=== PATIENT | female | born 1970 | race Caucasian/White ===

== ENCOUNTER → 2016-11-12 | Outpatient (CLI) | payer BC ==
[~2016-11-12] MED LIST: AMIT25TA9 PO; CYCL-375 PO; FAMO20TA8 PO; LAMO25TA3 PO; LEVO75TA10 PO; LINA145C PO; NAPR220T61 PO; TRAZ-170 PO
== END ==
LOC: LAB 10:48
PROVIDERS: ATTEND Family Medicine
DX: E03.9 Hypothyroidism, unspecified (principal)
CPT/HCPCS: 84439; 84443

== ENCOUNTER 2016-12-12 04:47 | Emergency (ER) | payer BC ==
[~2016-12-12] VITALS: Ht 166.4 cm; Wt 64.5 kg
--- OUTSIDE RECORDS SUMMARY | 2016-12-12 04:51 | XMS REPORT | Continuity of Care Document ---
Author Author [facility] Organization [facility] Address Unknown Phone Unavailable Support Name Relationship Address Phone BERNABE HOLDER MD Caregiver [address] [address] Unavailable CONNIE QUEZADA MD Caregiver [address] [place] [address] Unavailable DIXON DICKERSON Next Of Kin Unknown [phone] Insurance Providers Guarantor Mimi Turner Address [address] [place] [address] Email [email or web address] Policy Number [id number] Subscriber's Name YueEribertoa Relationship 18 Self Group Number [id number] Chief Complaint and Reason for Visit Chief Complaint Headache Reason for Visit headache consistent with migraine Problems Active Problems Medical Problem Onset Date Status Cephalgia consistent with migraine Unknown Acute Cephalgia consistent with migraine Unknown Acute Headache Unknown Acute Left flank pain Unknown Acute headache consistent with migraine Unknown Acute Medications Current Home Medications Medication Dose Units Route Directions Days Qty Instructions Start Date Amitriptyline Hcl 25 Mg Tablet 25 Mg Oral Bedtime 06/26/16 Cyclobenzaprine Hcl 10 Mg Tablet 10 Mg Oral Every 6 Hours as needed for Muscle Spasm 06/26/16 Famotidine 20 Mg Tablet 20 Mg Oral Twice A Day 06/26/16 Lamotrigine (Lamictal) 25 Mg Tablet 50 Mg Oral Bedtime 05/23/12 Levothyroxine Sodium 75 Mcg Tablet 75 Mcg Oral Before Breakfast 06/26/16 Linaclotide (Linzess) 145 Mcg Capsule 145 Mcg Oral Daily 06/26/16 Naproxen Sodium (Aleve) 220 Mg Tablet 440 Mg Oral Twice Daily With Meals as needed for Pain 06/26/16 Trazodone Hcl 50 Mg Tablet 75 Mg Oral Bedtime 06/26/16 Past Home Medications Medication Directions Ordered Status Estrogens,Conjugated (Premarin) 0.625 Mg Tablet, 1 Tab Oral Daily 01/14/09 Discontinued Lorazepam (Ativan) 1 Mg Tablet, 1 Tab Oral As Needed 01/14/09 Discontinued Trazodone Hcl (Desyrel) 100 Mg Tablet, 0.5 Tab Oral Bedtime 07/22/08 Discontinued Venlafaxine Hcl (Effexor Xr) 150 Mg Cap.sr.24h, 150 Oral Daily 07/22/08 Discontinued Social History Social History Problem Response Recorded Date/Time Onset Date Status Chewing Tobacco Status No 02/15/2014 1:55am Not Applicable Not Applicable Hx Substance Use No 06/26/2016 9:53am Not Applicable Not Applicable Hx Alcohol Use Y OCCASIONALLY 06/26/2016 9:53am Not Applicable Not Applicable Tobacco Usage none 05/04/2015 4:18pm Not Applicable Not Applicable Query Response Start Date Stop Date Smoking Status Never smoker Hospital Discharge Instructions No hospital discharge instructions. Plan of Care Discharge Date 06/26/16 12:20pm Disposition 01 DISCHARGED HOME, SELF-CARE Condition at Discharge Improved Instructions/Education Provided Migraine -- Adult Prescriptions See Medication Section Referrals BERNABE HOLDER MD Address: [address] [place] [address] [place] [address] Care Plan and Goals Physician Care Plan Problem: Migraine Goal: Follow up with primary care provider Instructions: Take medications and follow care plan as discussed/written Functional Status No functional status results. Allergies, Adverse Reactions, Alerts Allergen Type Severity Reaction Status Last Updated No Known Drug Allergies Allergy Unknown Active 08/11/15 Immunizations Query Response on File Recorded Date/Time Hx Influenza Vaccination Y 05/201405/05/15 1:26pm Hx Influenza Vaccination Y 05/201405/05/15 1:26pm Vital Signs Acute Vital Signs Vital Response Date/Time Temperature (Fahrenheit) 97.5 deg F (96.8 - 99.1) 06/26/2016 12:20pm Temperature (Calculated Celsius) 36.93046 degrees C (36.0 - 37.3) 06/26/2016 12:20pm Pulse Rate (adult) 106 bpm (60 - 100) 06/26/2016 12:20pm Respiratory Rate 16 breaths/min (10 - 20) 06/26/2016 12:20pm O2 Sat by Pulse Oximetry 100 % (90 - 100) 06/26/2016 12:20pm Blood Pressure 112/69 mm Hg 06/26/2016 12:20pm Height (Feet) 5 feet 06/26/2016 9:42am Height (Inches) 5.00 inches 06/26/2016 9:42am Weight (Kilograms) 65.800 kg 06/26/2016 9:42am Body Mass Index (BMI) 24.0 06/26/2016 9:42am Results Laboratory Results Test Name Result Units Flags Reference Collection Date/Time Result Date/ Time Comments White Blood Count 9.3 T/MM3 4.5-11.0 05/01/2016 1:07pm 05/01/2016 1: 21pm Red Blood Count 4.53 M/MM3 4.00-5.20 05/01/2016 1:07pm 05/01/2016 1: 21pm Hemoglobin 12.0 GM/DL 12-16 05/01/2016 1:07pm 05/01/2016 1:21pm Hematocrit 37.8 % 36-46 05/01/2016 1:05/01/2016 1:21pm Mean Corpuscular Volume 83.4 UM3 80-100 05/01/2016 1:07pm 05/01/2016 1: 21pm Mean Corpuscular Hemoglobin 26.5 UUG 26-34 05/01/2016 1:072015 1:21pm Mean Corpuscular Hemoglobin Concent 31.7 GM/DL 31-37 05/01/2016 1:07pm 05/01/2016 1:21pm RDW Standard Deviation 42.0 FL 36.9-50.2 05/01/2016 1:07pm 05/01/2016 1 :21pm Platelet Count 349 T/MM3 130-400 05/01/2016 1:05/01/2016 1:21pm Mean Platelet Volume 9.6 UM3 9.4-12.4 05/01/2016 1:0705/01/2016 1: 21pm Neutrophils (%) (Auto) 47.1 % 33-66 05/01/2016 1:07pm 05/01/2016 1: 21pm Lymphocytes (%) (Auto) 43.3 % 23-45 05/01/2016 1:05/01/2016 1: 21pm Monocytes (%) (Auto) 6.6 % 0-9.0 05/01/2016 1:07pm 05/01/2016 1:21pm Eosinophils (%) (Auto) 2.2 % 0-4 05/01/2016 1:0705/01/2016 1:21pm Basophils (%) (Auto) 0.5 % 0-2 05/01/2016 1:07pm 05/01/2016 1:21pm Immature Granulocyte % (Auto) 0.3 % 0.0-0.5 05/01/2016 1:07pm 2015 1:21pm Absolute Neutrophils (auto) 4.4 T/MM3 1.8-7.7 05/01/2016 1:07pm 2015 1:21pm Absolute Lymphocytes (auto) 4.0 T/MM3 1-4.8 05/01/2016 1:07pm 2015 1:21pm Absolute Monocytes (auto) 0.6 T/MM3 0-0.8 05/01/2016 1:07pm 05/01/2016 1:21pm Absolute Eosinophils (auto) 0.2 T/MM3 0-0.5 05/01/2016 1:07pm 2015 1:21pm Absolute Basophils (auto) 0.1 T/MM3 0-0.2 05/01/2016 1:0705/01/2016 1:21pm Absolute Immature Granulocyte (auto 0.03 T/MM3 0.00-0.03 05/01/2016 1: 07pm 05/01/2016 1:21pm Icterus Index < 2 0-7 05/01/2016 1:pm 05/01/2016 2:00pm Chemistry Specimen Hemolysis < 15 0-25 05/01/2016 1:07pm 05/01/2016 2 :00pm 0-25: Specimen Exhibited No Hemolysis. Turbidity < 20 0-20 05/01/2016 1:05/01/2016 2:00pm Sodium Level 145 MEQ/L H 134-144 05/01/2016 1:05/01/2016 2:00pm Potassium Level 3.8 MEQ/L 3.6-5 05/01/2016 1:0705/01/2016 2:00pm Chloride Level 104 MEQ/L 98-107 05/01/2016 1:07pm 05/01/2016 2:00pm Carbon Dioxide Level 29 MEQ/L 22-30 05/01/2016 1:07pm 05/01/2016 2: 00pm Anion Gap 12 MEQ/L 5-15 05/01/2016 1:07pm 05/01/2016 2:00pm Blood Urea Nitrogen 13.0 MG/DL 7-17 05/01/2016 1:07pm 05/01/2016 2: 00pm Creatinine 0.8 MG/DL 0.7-1.2 05/01/2016 1:07pm 05/01/2016 2:00pm BUN/Creatinine Ratio 16 RATIO 6-26 05/01/2016 1:07pm 05/01/2016 2:00pm Glomerular Filtration Rate Calc 78 05/01/2016 1:07pm 05/01/2016 2: 00pm Glucose Level 76 MG/DL 65-110 05/01/2016 1:07pm 05/01/2016 2:00pm Calculated Osmolality 278 MOSM/KG 261-280 05/01/2016 1:pm 05/01/2016 2:00pm Calcium Level 9.4 MG/DL 8.4-10.2 05/01/2016 1:07pm 05/01/2016 2:00pm Total Bilirubin 0.20 MG/DL 0.20-1.30 05/01/2016 1:pm 05/01/2016 2: 00pm Alkaline Phosphatase 90 U/L 38-126 05/01/2016 1:07pm 05/01/2016 2:00pm Total Protein 7.3 G/DL 6.3-8.2 05/01/2016 1:07pm 05/01/2016 2:00pm Albumin 4.4 G/DL 3.5-5.0 05/01/2016 1:07pm 05/01/2016 2:00pm Globulin 2.9 G/DL 2.4-3.6 05/01/2016 1:pm 05/01/2016 2:00pm Albumin/Globulin Ratio 1.5 RATIO 1.1-2.2 05/01/2016 1:07pm 05/01/2016 2 :00pm Aspartate Amino Transf (AST/SGOT) 22 U/L 14-36 05/01/2016 1:07pm 2015 2:00pm Alanine Aminotransferase (ALT/SGPT) 15 U/L 9-52 05/01/2016 1:07pm 05/01 2:00pm Thyroid Stimulating Hormone (TSH) 6.68 MIU/L H 0.47-4.68 05/01/2016 1: 07pm 05/01/2016 2:31pm Procedures Procedure Status Date Provider(s) ROUTINE VENIPUNCTURE Completed 05/01/16 X-RAY EXAM OF FOOT Completed 05/01/16 COMPREHEN METABOLIC PANEL Completed 05/01/16 ASSAY THYROID STIM HORMONE Completed 05/01/16 COMPLETE CBC W/AUTO DIFF WBC Completed 05/01/16 TTE W/DOPPLER COMPLETE Completed 05/26/16 Encounters Encounter Location Arrival/Admit Date Discharge/Depart Date Attending Provider Departed Emergency Room [facility] 06/26/16 9:40am 06/26/16 12: 20pm CONNIE QUEZADA MD Registered Clinic [facility] 05/26/16 1:32pm KAZ MORENO MD Registered [facility] 05/01/16 5:32am BERNABE HOLDER MD Recent Diagnosis
--- OUTSIDE RECORDS SUMMARY | 2016-12-12 04:51 | XMS REPORT | Continuity of Care Document ---
Author Author [facility] Organization [facility] Address Unknown Phone Unavailable Support Name Relationship Address Phone MARIA LUZRASHI PERRY DO Caregiver [facility] [address] [place], [place] [id number] FADUMO DOLL MD Caregiver [address] [place] [address] DIXON DICKERSON Next Of Kin Unknown [phone] Insurance Providers Payer Name Policy Number Subscriber Name Relationship Self Pay Mimi Godinez 18 Self Problems Medical Problems Problem Onset Date Status Headache Unknown Active headache consistent with migraine Unknown Active Cephalgia consistent with migraine Unknown Active Cephalgia consistent with migraine Unknown Active Medications Medication Dose Route Sig Days/Qty Instructions Order Date Discontinued Date Status Trazodone Hcl 0.5 Tab PO BEDTIME 07/22/08 Active Venlafaxine Hcl 150 PO DAILY 07/22/08 09/03/10 Discontinued Lorazepam 1 Tab PO NEEDED 01/14/09 09/03/10 Discontinued Estrogens,Conjugated 1 Tab PO DAILY 01/14/09 09/03/10 Discontinued Lamotrigine 0 PO 05/23/12 Active Cyclobenzaprine Hcl 5 Mg NEEDED PRN 09/21/13 Active Social History Social History Problem Response Recorded Date/Time Smoking Status Never smoker 02/15/2014 1:55am Chewing Tobacco Status No 02/15/2014 1:55am Hx Substance Use No 02/15/2014 1:55am Hx Alcohol Use Y OCCASSIONALLY 02/15/2014 1:55am Query Response Start Date Stop Date Smoking Status Never smoker Hospital Discharge Instructions No hospital discharge instructions. Plan of Care No plan of care. Functional Status Query Response Date Recorded Physical Hygiene Self February 15, 2014 1:55am Disabilities None February 15, 2014 1:55am Devices Used None February 15, 2014 1:55am Dressing Self February 15, 2014 1:55am Ambulation Self February 15, 2014 1:55am Diet Self February 15, 2014 1:55am Mental Status Alert Oriented February 15, 2014 1:55am Disabilities None February 15, 2014 1:55am Devices Used None February 15, 2014 1:55am Physical Hygiene Self February 15, 2014 1:55am Dressing Self February 15, 2014 1:55am Ambulation Self February 15, 2014 1:55am Diet Self February 15, 2014 1:55am Allergies, Adverse Reactions, Alerts Allergen Type Severity Reaction Status Last Updated No Known Drug Allergies Allergy Unknown Active 02/15/14 Immunizations Name Given Type Hx Influenza Vaccination Y 05/2013 Historical Hx Influenza Vaccination Y 05/2013 Historical Vital Signs Acute Vital Signs Vital Response Date/Time Temperature (Fahrenheit) 97.2 deg F (96.8 - 99.1) Temperature (Calculated Celsius) 36.62646 degrees C (36.0 - 37.3) Pulse Rate (adult) 84 bpm (60 - 100) Respiratory Rate 14 breaths/min (10 - 20) O2 Sat by Pulse Oximetry 98 % (90 - 100) Blood Pressure 106/63 mm Hg Height 5 ft 5 in Weight 125 lb Body Mass Index 20.0 kg/m^2 Results Test Source Date Result Interp. Ref. Range Comments Acetaminophen Level August 16, 2012 1:27pm < 10 UG/ML L 10-30 TOXIC < 4 HR POST INGESTION: >150 MG/L;TOXIC <12 HR POST INGESTION: >50 MG/L Alanine Aminotransferase (ALT/SGPT) November 24, 2012 9:17pm 33 U/L N 9-52 Albumin August 16, 2012 1:27pm 4.2 G/DL N 3.5-5.0 Albumin/Globulin Ratio August 16, 2012 1:27pm 1.4 RATIO N 1.1-2.2 Alcohol, Quantitative August 16, 2012 1:27pm <10 MG/DL - Alkaline Phosphatase August 16, 2012 1:27pm 96 U/L N 38-126 Amylase Level September 03, 2010 7:09pm 38 U/L N 30-110 Anion Gap August 16, 2012 1:27pm 13 MEQ/L N 5-15 Aspartate Amino Transf (AST/SGOT) August 16, 2012 1:27pm 38 U/L H 14- 36 BUN/Creatinine Ratio August 16, 2012 1:27pm 15 RATIO N 6-26 Band Neutrophils # August 16, 2012 1:27pm 0.6 T/MM3 - Band Neutrophils % August 16, 2012 1:27pm 6.0 % N 0-6 Basophils # (Auto) March 08, 2012 5:40am 0.1 T/MM3 N 0-0.2 Basophils (%) (Auto) March 08, 2012 5:40am 0.5 % N 0-2 Blood Urea Nitrogen August 16, 2012 1:27pm 12.0 MG/DL N 7-17 Calcium Level August 16, 2012 1:27pm 9.2 MG/DL N 8.4-10.2 Calculated Osmolality August 16, 2012 1:27pm 274 MOSM/KG N 261-280 Carbon Dioxide Level August 16, 2012 1:27pm 26 MEQ/L N 22-30 Chloride Level August 16, 2012 1:27pm 104 MEQ/L N 98-107 Conjugated Bilirubin August 16, 2012 1:27pm 0.00 MG/DL N 0.00-0.30 Creatinine August 16, 2012 1:27pm 0.8 MG/DL N 0.7-1.2 Crenated Cell August 16, 2012 1:27pm 1+ - Differential Total Cells Counted September 03, 2010 7:09pm 100 % - Eosinophils # (Auto) March 08, 2012 5:40am 0.4 T/MM3 N 0-0.5 Eosinophils # (Manual) August 16, 2012 1:27pm 0.1 T/MM3 N 0-0.5 Eosinophils % (Manual) August 16, 2012 1:27pm 1.0 % N 0-4 Eosinophils (%) (Auto) March 08, 2012 5:40am 3.6 % N 0-4 Globulin August 16, 2012 1:27pm 2.9 G/DL N 2.4-3.6 Glucose Level August 16, 2012 1:27pm 82 MG/DL N 65-110 Group A Streptococcus Screen September 03, 2010 9:28pm Positive - Has specimen been collected/obtained? Y Hematocrit August 16, 2012 1:27pm 39.3 % N 36-46 Hemoglobin August 16, 2012 1:27pm 13.1 GM/DL N 12-16 Hepatitis B Surface Ab Concentrat November 24, 2012 9:17pm Positive - Hepatitis B Surface Antibody September 29, 2013 10:00am Positive H - Hepatitis B Surface Antibody performed at [facility], [address] [place] [id number] Admission Nurse Coordinator Francie Hu MD Hepatitis C Antibody September 29, 2013 10:00am Negative - Influenza Type A Antigen September 03, 2010 7:09pm Negative - Negative for Flu A protein antigen. Assay sensitivity isbetween 65-83%. A negative result does not exclude influenza virus infection. "Influenza FA" may be ordered if clinical presentation warrants confirmatory testing. Influenza Type B Antigen September 03, 2010 7:09pm Negative - Negative for Flu B protein antigen. Assay sensitivity isbetween 65-83%. A negative result does not exclude influenza virus infection. "Influenza FA" may be ordered if clinical presentation warrants confirmatory testing. Lipase September 03, 2010 7:09pm 61 U/L N 23-300 Lymphocytes # (Auto) March 08, 2012 5:40am 4.1 T/MM3 N 1-4.8 Lymphocytes # (Manual) August 16, 2012 1:27pm 2.9 T/MM3 N 1-4.8 Lymphocytes % (Manual) August 16, 2012 1:27pm 27.0 % N 23-45 Lymphocytes (%) (Auto) March 08, 2012 5:40am 41.9 % N 23-45 Mean Corpuscular Hemoglobin August 16, 2012 1:27pm 27.3 UUG N 26-34 Mean Corpuscular Hemoglobin Concent August 16, 2012 1:27pm 33.3 GM/DL N 31-37 Mean Corpuscular Volume August 16, 2012 1:27pm 82.0 UM3 N 80-100 Mean Platelet Volume August 16, 2012 1:27pm 10.1 UM3 N 9.4-12.4 Measles/Mumps/Rubella Immunity January 10, 2013 2:47pm - - . <0.91= Negative. 0.91 - 1.09=Equivocal . >1.09=Positive Positive results suggest response to immunization or prior exposure. Varicella Zoster IGG performed at [facility], [facility] [place] [address] Admission Nurse Coordinator Francie Hu MD Monocytes # (Auto) March 08, 2012 5:40am 0.7 T/MM3 N 0-0.8 Monocytes # (Manual) August 16, 2012 1:27pm 0.5 T/MM3 N 0-0.8 Monocytes % (Manual) August 16, 2012 1:27pm 5.0 % N 0-9.0 Monocytes (%) (Auto) March 08, 2012 5:40am 7.1 % N 0-9.0 Neutrophils # (Auto) March 08, 2012 5:40am 4.5 T/MM3 N 1.8-7.7 Neutrophils # (Manual) August 16, 2012 1:27pm 5.7 T/MM3 N 1.8-7.7 Neutrophils % (Manual) August 16, 2012 1:27pm 53.0 % N 33-66 Neutrophils (%) (Auto) March 08, 2012 5:40am 46.7 % N 33-66 Ovalocytes August 16, 2012 1:27pm 1+ - Platelet Count August 16, 2012 1:27pm 379 T/MM3 N 130-400 Potassium Level August 16, 2012 1:27pm 3.8 MEQ/L N 3.6-5 RDW Standard Deviation August 16, 2012 1:27pm 39.3 FL N 36.9-50.2 Red Blood Count August 16, 2012 1:27pm 4.79 M/MM3 N 4.00-5.20 Salicylates Level August 16, 2012 1:27pm < 1.0 MG/DL L 2-20 Sodium Level August 16, 2012 1:27pm 143 MEQ/L N 134-144 Thyroid Stimulating Hormone (TSH) November 26, 2011 3:34pm 3.60 MIU/L N 0.47-4.68 Total Bilirubin August 16, 2012 1:27pm 0.50 MG/DL N 0.20-1.30 Total Protein August 16, 2012 1:27pm 7.1 G/DL N 6.3-8.2 Unconjugated Bilirubin August 16, 2012 1:27pm 0.20 MG/DL N 0.00-1.10 Urine Amorphous Urates August 16, 2012 2:00pm Many - Has specimen been collected/obtained? Y Urine Amphetamines Screen August 16, 2012 1:27pm Negative NG/ML - Urine Bacteria August 16, 2012 2:00pm None seen - Has specimen been collected/obtained? Y Urine Barbiturates Screen August 16, 2012 1:27pm Negative NG/ML - Urine Benzodiazepines Screen August 16, 2012 1:27pm Negative NG/ML - Urine Bilirubin August 16, 2012 2:00pm Negative - Has specimen been collected/obtained? Y Urine Blood August 16, 2012 2:00pm Negative - Has specimen been collected/obtained? Y Urine Cocaine Screen August 16, 2012 1:27pm Negative NG/ML - Urine Collection Type August 16, 2012 2:00pm Tariq port - Has specimen been collected/obtained? Y Urine Color August 16, 2012 2:00pm Yellow - Has specimen been collected/obtained? Y Urine Culture Indicated August 16, 2012 2:00pm Cult not indicated - Has specimen been collected/obtained? Y Urine Glucose (UA) August 16, 2012 2:00pm Negative - Has specimen been collected/obtained? Y Urine Ketones August 16, 2012 2:00pm Trace H - Has specimen been collected/obtained? Y Urine Leukocyte Esterase August 16, 2012 2:00pm Negative - Has specimen been collected/obtained? Y Urine Methamphetamines Screen April 06, 2011 12:30pm Negative NG/ML - Urine Mucus August 16, 2012 2:00pm Present - Has specimen been collected/obtained? Y Urine Nitrite August 16, 2012 2:00pm Negative - Has specimen been collected/obtained? Y Urine Opiates Screen August 16, 2012 1:27pm Negative NG/ML - Urine Phencyclidine Screen April 06, 2011 12:30pm Negative NG/ML - Urine Protein August 16, 2012 2:00pm Negative - Has specimen been collected/obtained? Y Urine RBC August 16, 2012 2:00pm None seen /HPF - Has specimen been collected/obtained? Y Urine Specific Mcmillan August 16, 2012 2:00pm 1.025 - Has specimen been collected/obtained? Y Urine Squamous Epithelial Cells August 16, 2012 2:00pm None seen - Has specimen been collected/obtained? Y Urine Tricyclic Antidepressants August 16, 2012 1:27pm Positive NG/ML - Urine Turbidity August 16, 2012 2:00pm Very cloudy - Has specimen been collected/obtained? Y Urine Urobilinogen August 16, 2012 2:00pm Normal EU/DL - Has specimen been collected/obtained? Y Urine WBC August 16, 2012 2:00pm None seen /HPF - Has specimen been collected/obtained? Y Urine pH August 16, 2012 2:00pm 5.0 - Has specimen been collected/ obtained? Y Varicella-Zoster IgG Antibody January 10, 2013 2:47pm Negative H - White Blood Count August 16, 2012 1:27pm 10.7 T/MM3 N 4.5-11.0 Glucometer August 16, 2012 2:43pm 98 mg/dL N 65-110 Lab Scanned Report September 29, 2013 12:50pm LAB TEST FORM REQUEST [id number] - Urine Methadone Screen August 16, 2012 1:27pm Negative NG/ML - HIV (1&2) Antibody Rapid September 29, 2013 10:00am Negative - Urine Cannabinoids Screen August 16, 2012 1:27pm Negative NG/ML - Reactive Lymphocytes % August 16, 2012 1:27pm 8.0 % H 0-0 Glomerular Filtration Rate Calc August 16, 2012 1:27pm 79 - Reactive Lymphocytes # August 16, 2012 1:27pm 0.9 T/MM3 H 0-0 Immature Granulocyte # (Auto) March 08, 2012 5:40am 0.02 T/MM3 N 0.00- 0.03 Immature Granulocyte % (Auto) March 08, 2012 5:40am 0.2 % N 0.0-0.5 Urine Amphetamine Screen April 06, 2011 12:30pm Negative NG/ML - Urine Microscopic Not Indicated September 03, 2010 9:31pm Not indicated - Has specimen been collected/obtained? Y Varicella-Zoster IgG Ab Index Value January 10, 2013 2:47pm 0.70 OD Ratio L - Procedures No known history of procedures. Encounters Encounter Location Date/Time Departed Emergency Room [facility] 02/15/14 1:06am Recent Diagnosis
[2016-12-12 04:52] VITALS: TEMP 97.4; Ht 166.4 cm; Wt 64.5 kg
--- OUTSIDE RECORDS SUMMARY | 2016-12-12 04:52 | XMS REPORT | Continuity of Care Document ---
Author Author [facility] Organization [facility] Address Unknown Phone Unavailable Allergies Medications Problems Date Dx Coded Attending Type Code Diagnosis Diagnosed By 04/28/2013 Raymond Ambrose MD Final 346.90 MIGRAINE NOS W/O SM 04/28/2013 Raymond Ambrose MD Admitting 784.0 HEADACHE Procedures Results Encounters ACCT No. Visit Date/Time Discharge Status Pt. Type Provider Facility Loc./Unit Complaint [id number] 04/28/2013 02:17:00 2012 04:45:00 DIS Emergency Raymond Ambrose MD [facility] [place]
[2016-12-12] MEDS ORDERED: NORMAL SALINE 1,000 ML IV ONE (05:15)
[2016-12-12] MEDS ORDERED: METOCLOPRAMIDE 10mg/2ml INJECTION IV ONE (05:15)
--- NOTE | 2016-12-12 05:22 | ERPDOC ---
Departure Disposition Decision Date: Dec 12, 2016 Disposition Decision Time: 06:18 Disposition: 01 DISCHARGED HOME, SELF-CARE Impression Impression Impression: Primary Impression: headache consistent with migraine Severity: Moderate Condition: Improved Seen By: Physician only Referrals: BERNABE HOLDER MD (Family) 2 Days Patient Instructions: Migraine Headache (ED) Problems/Meds/Labs Reviewed?: Yes Medications reviewed and manag: Yes Follow up care ordered?: Yes Mental Status: Alert, Oriented HPI - Headache General Chief Complaint: Headache Stated Complaint: MIGRAINE Time Seen by Provider: 04:49 Source: patient Exam Limitations: no limitations HPI - Headache Initial Comments 46-year-old female presents the emergency department with a chief complaint of a typical migraine headache. Patient noted onset of symptoms at approximately 3 AM today. Patient states her symptoms have been gradual in nature for progression. She describes the pain as sharp. Pain is located behind the right eye. There is no radiation. Pain is moderate in nature. She does not note any exacerbating or remitting factors. Patient denies any other complaints or associated symptoms other than mild nausea and one or 2 episodes of emesis. There is no blood in the emesis. Patient denies any other complaints or associated symptoms. Symptoms have been persistent in nature since onset. She denies any other complaints or associated symptoms. Occurred At: home Onset: Gradual Allergies: Coded Allergies: No Known Drug Allergies (Verified Allergy, Unknown, 08/11/15) Past History Past Medical History Hx Echocardiogram: No GI: constipation Neurological: migraines Psychological: OD, bipolar, depression, suicide attempt Surgical History General: appendix, gallbladder Reproductive/: hysterectomy Family History Family PMH: FOUND: [place], diabetes, hypertension Vaccines Hx Influenza Vaccination: Yes (05/2014) Social History Smoking Status: Never smoker Substance Use Type: does not use Alcohol Intake: none Sexuality: male partner Review of Systems Constitutional Constitutional: DENIES: chills, fever Eyes General: DENIES: erythema, exudate Lids/Accessories: DENIES: erythema, swelling Vision: DENIES: acuity, blurring ENMT Ears: DENIES: drainage, erythema Hearing: DENIES: hearing loss Balance: DENIES: ataxia, falling to one side Sinuses: DENIES: congestion, pain Nose: DENIES: nosebleeds, pain Mouth/Throat: DENIES: painful swallowing, sore throat Teeth: DENIES: pain Jaw: DENIES: pain Cardiovascular Cardiac: DENIES: chest pain, dyspnea on exertion Rhythm/Rate: DENIES: irregular beat, palpitations Vascular: DENIES: pedal edema, unilateral swelling Pulmonary Respiratory: DENIES: cough, dyspnea, pleuritic chest pain, sputum GI Upper Abdomen: nausea, vomiting, DENIES: pain Lower Abdomen: DENIES: diarrhea, pain General: DENIES: dysuria, frequency Musculoskeletal General: DENIES: joint pain, tenderness Integumentary Skin: DENIES: itching, rash Neurological General: headache, DENIES: change in strength, numbness, weakness Psychiatric Psychiatric: DENIES: emotional instability, suicidal ideation/attempt Endocrine Endocrine: DENIES: polydipsia, polyphagia Hematologic/Lymphatic Hematologic/Lymphatic: DENIES: frequent nosebleeds, lymphadenopathy Allergic/Immunological Allergic/Immunoligical: DENIES: allergic reactions, hives Physical Exam General General Nourishment: well nourished, well developed, appears stated age, no acute distress, adult General Body Habitus: well groomed Vitals and Pain First Documented Vital Signs Date Time Temp Pulse Resp B/P Pulse Ox O2 Delivery O2 Flow Rate FiO2 12/12/16 04:52 97.4 117 18 110/65 96 Room Air Weight: Kilograms: 64.500 Height (feet): 5 Height (inches): 5.50 Triage Pain Scale: RN VS reviewed by Provider: Yes Normal Exams: Head: Normocephalic w/o trauma Eyes: Pupils are PERRLA w/ EOMI, No scleral icterus, irritation, or foreign bodies noted ENMT: No facial trauma, nasal exudates, pharyngeal erythema, or exudates are noted Dental: No fractured, loose, or missing teeth noted Neck: Full range of motion, without adenopathy, JVD, bruits or thyromegaly Chest/Resp: Clear all [place], with good airflow, and symmetry bilaterally CV: Regular rate and rhythm, without murmur or gallop, Pulses 2+ all extremities, capillary refill, <2 seconds all ext., no pedal edema noted Abdomen: Bowel sounds positive, soft, non-tender, non-distended, no hepatosplenomegaly, masses or bruits noted Lymphatic: No lymphadenopathy, or lymphedema noted Musculoskeletal: No tenderness, or deformity noted, good range of motion, all extremities Integumentary: No rashes, hives, or bruising noted, hair and nails, without abnormality Neurologic: Patient is alert, and oriented, cranial nerves, motor/sensory/ cerebellar, exams w/o gross deficits, to observation Psychiatric: Patient exhibits, appropriate attention, emotion and affect Neurologic (brief) Comments Alert and oriented x 4. CN 2-12 intact. Normal strength. Normal motor. Normal coordination. Normal sensation. Normal gait. Normal speech. Absent Babinski bilaterally. Reflexes 2/4 in all extremities. No focal neurologic deficit. Unremarkable neurologic examination. Differential Diagnoses Considering: Headache, Headache - Migraine, Headache - Tension/Muscle, Vomiting Progress Results/Orders Orders Procedure Category Date Status Time Ct Head W/O Contrast CT 12/12/16 Taken 05:11 Normal Saline (Normal PHA 12/12/16 Complete Saline Iv) 05:15 Metoclopramide PHA 12/12/16 Complete (Reglan Inj) 05:15 Ketorolac (Toradol) PHA 12/12/16 Complete 06:15 Promethazine PHA 12/12/16 Complete (Phenergan) 06:30 Medications Current ED Medications Sodium Chloride (Normal Saline IV) 1,000 ml @ 999 mls/hr Q1H1M ONCE IV Last administered on 12/12/16 05:25; Start 12/12/16 at 05:15; Stop 12/12/16 at 06:15 ; Status DC Metoclopramide HCl (REGLAN Inj) 10 mg O ONCE IV Last administered on 05:26; Start 12/12/16 at 05:15; Stop 12/12/16 at 05:17; Status DC Ketorolac Tromethamine (Toradol) 30 mg O ONCE IV Last administered on 06:19; Start 12/12/16 at 06:15; Stop 12/12/16 at 06:16; Status DC Promethazine HCl (Phenergan) 25 mg O ONCE IM Last administered on 12/12/16 06 :30; Start 12/12/16 at 06:30; Stop 12/12/16 at 06:31; Status DC Progress Progress Imaging is reviewed in detail with the patient and questions are answered. Patient is given IV hydration. Patient is given Reglan 10 mg IV times one. Patient is given Toradol 30 mg IV 1 with improvement of symptoms. Patient is discharged home in improved condition. Patient is to follow up as instructed. Patient is to return to the emergency Department if her condition worsens or changes in any manner. Patient is in agreement with the current plan of management. Patient has a history of a resting tachycardia for which she is followed by cardiology. Her current heart rate is at baseline for the patient. CT CT : CT: Head no contrast Interpretation: Normal, Faxed Report ADRIANE SIDDIQI DO Dec 12, 2016 05:22
--- NOTE | 2016-12-12 05:34 | NUR ---
IMAGING PT TO IMAGING AT THIS TIME.
[2016-12-12] MEDS ORDERED: BUTA1CAP53 PO (05:35)
--- NOTE | 2016-12-12 05:47 | NUR ---
IMAGING PT RETURN TO ROOM VIA CART AT THIS TIME.
--- NOTE | 2016-12-12 06:08 | NUR ---
REPORT REPORT GIVEN AT THIS TIME TO EN [facility]ONS.
[2016-12-12] MEDS ORDERED: KETOROLAC 30mg/ml INJECTION IV ONE (06:15)
--- OUTSIDE RECORDS SUMMARY | 2016-12-12 06:24 | XMS REPORT | Continuity of Care Document ---
Author Author [facility] Organization [facility] Address Unknown Phone Unavailable Support Name Relationship Address Phone MARIA LUZRASHI PERRY DO Caregiver [facility] [address] [place], [place] [id number] FADUMO DOLL MD Caregiver [address] [place] [address] DIXON DICKERSON Next Of Kin Unknown [phone] Insurance Providers Payer Name Policy Number Subscriber [...] F (96.8 - 99.1) Temperature (Calculated Celsius) [phone] degrees C (36.0 - 37.3) Pulse Rate [...] - Hepatitis B Surface Antibody performed at [facility], [address] [place] [id number] [employer] Francie Hu MD Hepatitis C Antibody September [...] prior exposure. Varicella Zoster IGG performed at [facility], [facility] [place] [address] [employer] Francie Hu MD Monocytes # (Auto) March [...] Has specimen been collected/obtained? Y Urine Specific [place] August 16, 2012 2:00pm 1.025 - Has [...] 29, 2013 12:50pm LAB TEST FORM REQUEST [id number] - Urine Methadone Screen August 16, 2012 [...] Encounters Encounter Location Date/Time Departed Emergency Room [facility] 02/15/14 1:06am Recent Diagnosis
--- OUTSIDE RECORDS SUMMARY | 2016-12-12 06:25 | XMS REPORT | Continuity of Care Document ---
Author Author [facility] Organization [facility] Address Unknown Phone Unavailable Allergies Medications Problems Date Dx Coded Attending Type Code Diagnosis Diagnosed By 04/28/2013 Raymond Ambrose MD Final 346.90 MIGRAINE NOS W/O SM 04/28/2013 Raymond Ambrose MD Admitting 784.0 HEADACHE Procedures Results Encounters ACCT No. Visit Date/Time Discharge Status Pt. Type Provider Facility Loc./Unit Complaint [id number] 04/28/2013 02:17:00 2012 04:45:00 DIS Emergency Raymond Ambrose MD [facility]
[2016-12-12] MEDS ORDERED: PROMETHAZINE 25 MG INJECTION IM ONE (06:30)
[2016-12-12 06:50] VITALS: BP 96/59; PULSE 112; RESP 16; O2SAT 100
--- NOTE | 2016-12-13 09:42 | DI ---
Indication: ITS.REASON: migraine logan PROCEDURE: CT HEAD W/O CONTRAST: Encounter: Initial Comparison: None Technique: Axial CT images through the head were performed without contrast. Iterative Reconstruction dose reducing technique was utilized. FINDINGS: The ventricles are of normal size, shape, and contour for the patient's age. The brainstem, cerebellum, and cerebral hemispheres have a normal morphology and CT attenuation. There is no evidence of midline displacement. No hemorrhage, signs of acute territorial stroke, mass effect, mass lesions, or edema is evident. The visualized portions of the skull base, midface, and calvarium demonstrate no abnormality. The paranasal sinuses are well aerated and free of significant disease. The tympanic and mastoid cavities appear normal. IMPRESSION: No acute intracranial abnormality or hemorrhage. There is a preliminary report by [facility]. .
== END 2016-12-12 06:57 | disposition home or self-care (01) ==
LOC: ED 04:47
DX: R51 Headache (principal); R11.2 Nausea with vomiting, unspecified
CPT/HCPCS: 96372